=== PATIENT | female | born 1940 | race Caucasian/White ===

== ENCOUNTER 2017-05-03 14:19 | Emergency (ER) | payer OTHER, MEDICARE ==
--- NOTE | 2017-05-03 15:10 | CPEKG ---
Heart Rate: 78 RR Interval: 769 P-R Interval: 148 QRSD Interval: 86 QT Interval: 388 QTC Interval: 442 P [place]: 36 QRS [place]: 16 T Wave [place]: 75 EKG Severity - NORMAL ECG - EKG Impression: SINUS RHYTHM Electronically Signed By: Kevin Richards 03-May-2017 19:54:57
--- NOTE | 2017-05-03 15:32 | EDPHY ---
H & P Time Seen by Provider: 05/03/17 15:31 HPI/ROS: Chief complaint. Confused HPI. 76-year-old female visiting from [place] with back pain for 1 month and confusion since arrival. Apparently she has had back pain for 1 month after lifting pots and has been being treated with Flexeril by her physician. She arrived from [place] 2 days ago. Her son no she slightly shaky on getting up. She seemed somewhat confused today with discussion of plan for the day. She was in the parking lot with her son doing errands and was low bit shaky. A bystander came to help and the patient thought that the helper was her daughter. She apparently had similar symptoms over when she was visiting another child in [place]. The son notes decreased oral intake since arrival. Previously she has had to come to the emergency department for rehydration when coming to [place]. The patient's pain is sometimes on the right low back and sometimes the left low back. Occasionally goes down the leg. However she has no leg weakness or bowel or bladder symptoms. She also denies headache or fever, chest pain, shortness of breath, abdominal pain. She slightly lightheaded on standing. ROS Constitutional. no fever/chills, no weakness Eyes. no problems with vision ENT. no sore throat, no nasal drainage Cardiovascular. no chest pain Respiratory. no shortness of breath, no cough Abdominal. no abdominal pain, no nausea/vomiting, no diarrhea . no problems urinating MS. Low back pain for approximately 1 month Skin. no rash Lymph. no swollen glands Neuro. Slight confusion and lightheadedness. Past Medical/Surgical History: Past medical history is significant for dyslipidemia, hypertension, hypothyroid Social History: , nonsmoker, no alcohol Smoking Status: Former smoker Physical Exam: General Appearance: Alert well-developed female mild distress vital signs are stable Eyes: Pupils equal and round no pallor or injection. ENT, mucous membranes are dry Respiratory: There are no retractions, lungs are clear to auscultation. Cardiovascular: Regular rate and rhythm. Gastrointestinal: Abdomen is soft and nontender, no masses, bowel sounds normal. Neurological: Awake and alert, sensory and motor exams grossly normal. Skin: Warm and dry, no rashes. Musculoskeletal: Neck is supple nontender. No tenderness over T or LS spine. No tenderness to palpation of either side of her low back though she shows me that this is where she occasionally has pain. Extremities symmetrical, full range of motion. Psychiatric: Patient is oriented X 3, there is no agitation. Constitutional: Initial Vital Signs Temperature (C) 36.8 C 05/03/17 14:49 Heart Rate 80 05/03/17 14:49 Respiratory Rate 18 05/03/17 14:49 Blood Pressure 141/75 H 05/03/17 14:49 O2 Sat (%) 93 05/03/17 14:49 O2 Delivery Mode Room Air Allergies/Adverse Reactions: No Known Allergies Allergy (Unverified 05/01/14 12:47) Home Medications: Medication Instructions Recorded Coreg 05/01/14 THYROID 05/01/14 Bentyl 05/30/14 Gabapentin 05/30/14 Multivitamin 05/30/14 Pravastatin Sodium 05/30/14 Protonix 05/30/14 Flexeril 05/03/17 Zyrtec 05/03/17 Medical Decision Making - Diagnostics EKG Interpretation: EKG interpreted by me shows normal sinus rhythm with normal interval and axis. QRS is normal there is no significant ST elevation or depression. No arrhythmia. The rate is 78 Imaging Results: Imaging Impressions Chest X-Ray 05/03/17 15:48 Impression: Suspect airways disease.. Head CT 05/03/17 15:48 Impression: Elderly brain with age-appropriate atrophy and probable white matter small vessel disease. Nothing acute is identified. Results called and discussed with AUGUSTA PINEDA on 05/03/2017 at 17:14 One-view chest x-ray interpreted by me is nonacute. No evidence for pneumonia. Noncontrast head CT reviewed by me and discussed with Dr. Ramon shows age- appropriate atrophy only Procedures: IV normal saline, ED Course/Re-evaluation: Re-evaluation at 5:15 p.m.. Patient is conversational. She is finishing her 1st L of saline. She is drinking a glass of water. She has urinated. Recheck again at 6:15 p.m.. Patient is feeling better no complaints. The patient, her son, and I discussed imaging study results, treatment plan including criteria for return importance of follow-up and further evaluation. They expressed understanding and agreement Differential Diagnosis: I considered urinary tract infection, CVA and intracranial bleeding, pneumonia, dehydration, electrolyte abnormalities. This is likely dehydration and altitude illness. - Data Points Laboratory Results: Laboratory Results 05/03/17 16:14 05/03/17 16:14 05/03/17 05/03/17 05/03/17 17:30 16:14 16:14 WBC 7.36 10^3/uL 10^3/uL (3.80-9.50) RBC 3.82 10^6/uL L 10^6/uL (4.18-5.33) Hgb 12.4 g/dL L g/dL (12.6-16.3) Hct 36.5 % L % (38.0-47.0) MCV 95.5 fL fL (81.5-99.8) MCH 32.5 pg pg (27.9-34.1) MCHC 34.0 g/dL g/dL (32.4-36.7) RDW 12.6 % % (11.5-15.2) Plt Count 201 10^3/uL 10^3/uL (150-400) MPV 10.8 fL fL (8.7-11.7) Neut % (Auto) 62.1 % % (39.3-74.2) Lymph % (Auto) 27.3 % % (15.0-45.0) [place] % (Auto) 8.0 % % (4.5-13.0) Eos % (Auto) 1.9 % % (0.6-7.6) Baso % (Auto) 0.4 % % (0.3-1.7) Nucleat RBC Rel Count 0.0 % % (0.0-0.2) Absolute Neuts (auto) 4.57 10^3/uL 10^3/uL (1.70-6.50) Absolute Lymphs (auto) 2.01 10^3/uL 10^3/uL (1.00-3.00) Absolute Monos (auto) 0.59 10^3/uL 10^3/uL (0.30-0.80) Absolute Eos (auto) 0.14 10^3/uL 10^3/uL (0.03-0.40) Absolute Basos (auto) 0.03 10^3/uL 10^3/uL (0.02-0.10) Absolute Nucleated RBC 0.00 10^3/uL 10^3/uL (0-0.01) Immature Gran % 0.3 % % (0.0-1.1) Immature Gran # 0.02 10^3/uL 10^3/uL (0.00-0.10) Sodium 146 mEq/L H mEq/L (134-144) Potassium 4.0 mEq/L mEq/L (3.5-5.2) Chloride 103 mEq/L mEq/L (97-110) Carbon Dioxide 28 mEq/l mEq/l (22-31) Anion Gap 15 mEq/L mEq/L (8-16) BUN 27 mg/dL H mg/dL (7-23) Creatinine 1.5 mg/dL H mg/dL (0.6-1.0) Estimated GFR 34 Glucose 94 mg/dL mg/dL (70-100) Calcium 9.7 mg/dL mg/dL (8.5-10.4) Troponin I < 0.012 ng/mL ng/mL (0.000-0.034) Urine Color YELLOW Urine Appearance CLEAR Urine pH 7.0 (5.0-7.5) Ur Specific [place] 1.008 (1.002-1.030) Urine Protein NEGATIVE (NEGATIVE) Urine Ketones NEGATIVE (NEGATIVE) Urine Blood NEGATIVE (NEGATIVE) Urine Nitrate NEGATIVE (NEGATIVE) Urine Bilirubin NEGATIVE (NEGATIVE) Urine Urobilinogen NEGATIVE EU EU (0.2-1.0) Ur Leukocyte Esterase TRACE H (NEGATIVE) Urine RBC 1-3 /hpf /hpf (0-3) Urine WBC 1-3 /hpf /hpf (0-3) Ur Epithelial Cells TRACE /lpf /lpf (NONE-1+) Urine Bacteria TRACE /hpf H /hpf (NONE SEEN) Urine Glucose NEGATIVE (NEGATIVE) Medications Given: Discontinued Medications Sodium Chloride (Ns) 1,000 mls @ 0 mls/hr IV ONCE ONE; Wide Open PRN Reason: Protocol Stop: 05/03/17 15:49 Last Admin: 05/03/17 16:30 Dose: 1,000 mls Departure - Departure Disposition: Home, Routine, Self-Care Clinical Impression: Dehydration Condition: Good Instructions: Dehydration (ED) Additional Instructions: Drink plenty of fluids to stay hydrated. Continue your regular medications. Return for worsening symptoms including fever, confusion, chest discomfort, trouble breathing. Recheck in 2-3 days if not improving Referrals: DR LANCE [Other] - As per Instructions Krissy Smith MD [Medical Doctor] - 2-3 days, if not improved
[2017-05-03] MEDS ORDERED: NS 1,000 ML IV ONE (15:48)
[2017-05-03 16:28] LABS: % IMMATURE GRANULYOCYTES 0.3 % (0.0-1.1); ABSOLUTE IMMATURE GRANULOCYTES 0.02 10^3/uL (0.00-0.10); ADD DIFF? NO; ADD MORPH? NO; ADD SCAN? NO; ATYPICAL LYMPHOCYTE FLAG 10 (0-99); FRAGMENT RBC FLAG 0 (0-99); HEMATOCRIT 36.5 % (38.0-47.0); HEMOGLOBIN 12.4 g/dL (12.6-16.3); LEFT SHIFT FLG 0 (0-99); LIPEMIA HEMOLYSIS FLAG 90 (0-99); MEAN CELL HEMOGLOBIN 32.5 pg (27.9-34.1); MEAN CELL VOLUME 95.5 fL (81.5-99.8); MEAN PLATELET VOLUME 10.8 fL (8.7-11.7); PLATELET CLUMPS FLAG 30 (0-99); PLATELET COUNT 201 10^3/uL (150-400); RED BLOOD CELL COUNT 3.82 10^6/uL (4.18-5.33); RED CELL DISTRIBUTION WIDTH 12.6 % (11.5-15.2)
[2017-05-03 16:35] LABS: ANION GAP 15 mEq/L (8-16); CALCIUM 9.7 mg/dL (8.5-10.4); CARBON DIOXIDE 28 mEq/l (22-31); CHLORIDE 103 mEq/L (97-110); CREATININE 1.5 mg/dL (0.6-1.0); GLOMERULAR FILTRATION RATE 34; GLUCOSE 94 mg/dL (70-100); SODIUM 146 mEq/L (134-144)
[2017-05-03 16:46] LABS: TROPONIN I < 0.012 ng/mL (0.000-0.034)
[2017-05-03 17:52] LABS: COLOR YELLOW; LEUKOCYTE ESTERASE,URINE TRACE (NEGATIVE); NITRITE,URINE NEGATIVE (NEGATIVE)
[2017-05-03 17:53] LABS: BACTERIA TRACE /hpf (NONE SEEN)
[2017-05-03 18:04] VITALS: O2SAT 96
[2017-05-03 18:49] VITALS: BP 166/86; PULSE 59; RESP 18; TEMP 98.2
== END 2017-05-03 18:46 | disposition home or self-care (01) ==
DX: E86.0 Dehydration (principal); I10 Essential (primary) hypertension; E86.9 Volume depletion, unspecified; Z87.891 Personal history of nicotine dependence